=== PATIENT | female | born 1935 | race Caucasian/White ===

== ENCOUNTER 2020-11-16 08:04 | Outpatient (REF) | payer MEDICARE, SELFPAY ==
[2020-11-16 12:17] LABS: Alanine Aminotransferase 13 U/L (0-31); Albumin Level 4.1 g/dL (3.5-5.0); Alkaline Phosphatase 67 U/L (39-117); Anion Gap 14 (12-20); Aspartate Amino Transferase 17 U/L (5-31); Bilirubin Total 0.4 mg/dL (0.0-1.0); Blood Urea Nitrogen 20 mg/dL (9-16); Calcium 9.1 mg/dL (8.4-10.2); Carbon Dioxide 27 mmol/L (22-29); Chloride 105 mmol/L (96-108); Estimated Glomerular Filt Rate > 60; Glucose Random 92 mg/dL (60-115); Potassium 4.4 mmol/L (3.3-5.1); Sodium 142 mmol/L (135-145)
[2020-11-22 12:11] LABS: Vitamin D 25-OH, D2 <4 ng/mL; Vitamin D 25-OH, D3 18 ng/mL; Vitamin D 25-OH, Total 18 ng/mL (30-100)
== END 2020-11-16 08:05 | disposition home or self-care (01) ==
LOC: HO.HMGCLDS 08:04
PROVIDERS: PCP Internal Medicine; Visit Provider Internal Medicine
DX: E78.9 Disorder of lipoprotein metabolism, unspecified (principal); I10 Essential (primary) hypertension; K59.01 Slow transit constipation; M81.0 Age-related 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 fracture
CPT/HCPCS: 36415; 80053; 82306

== ENCOUNTER 2020-11-29 08:22 | Outpatient (REF) | payer MEDICARE, SELFPAY ==
--- NOTE | ~2020-11-29 | US_ITS ---
EXAMINATION: US ABDOMEN COMPLETE CLINICAL INFORMATION: Unspecified abdominal pain. COMPARISON: None TECHNIQUE: Real-time imaging of the abdominal viscera. FINDINGS: PANCREAS: Normal. ABDOMINAL AORTA: The proximal, mid, and distal segments are normal in caliber. INFERIOR VENA CAVA: Visualized portions are normal. LIVER: The liver is normal in size. The liver contour is normal. There is diffuse increased liver echogenicity. There is an anechoic lobulated cyst in the right hepatic lobe measuring 3.6 x 2.1 x 3.7 cm. There is no intrahepatic biliary duct dilatation seen. GALLBLADDER: The gallbladder is physiologically distended. Multiple mobile gallstones are present. No evidence of gallbladder wall thickening or pericholecystic fluid. COMMON BILE DUCT: Normal in caliber measuring 0.8 cm in diameter. RIGHT KIDNEY: There is an echogenic nonobstructive calculi upper pole measuring 0.2 x 0.3 x 0.3 cm. No hydronephrosis or focal parenchymal lesions. The kidney measures 10.5 cm in maximum dimension and is mildly lobulated. LEFT KIDNEY: The left kidney is mildly lobulated. No hydronephrosis or focal parenchymal lesions. The kidney measures 10.4 cm in maximum dimension. There are multiple anechoic cysts. The largest midpole cyst measures 0.9 x 1.0 x 0.9 cm and upper pole cyst measures 0.5 x 0.5 x 0.4 cm. SPLEEN: Normal. The spleen measures 9.1 cm in maximum dimension. FREE FLUID: None. US/US abdomen complete IMPRESSION: Lobulated bilateral kidneys with bilateral renal cysts. No echogenic calculi or hydronephrosis seen. Small right hepatic cyst. Multiple echogenic gallstones without wall thickening or tenderness.
== END 2020-11-29 08:23 | disposition home or self-care (01) ==
LOC: HO.HMGCX 08:22
PROVIDERS: Visit Provider Internal Medicine
DX: R10.9 Unspecified abdominal pain (principal)
CPT/HCPCS: 76700

== ENCOUNTER 2021-02-12 08:00 | Outpatient (RCR) | payer OTHER, SELFPAY ==
[2021-01-31 11:02] VITALS: BP 135/96
--- NOTE | 2021-03-14 09:41 | MHC.PT.DC ---
[facility] [place] [facility] [place] [facility] [place] [facility] [address] Matheus Warner [address] [phone] F: [phone] F: [phone] F: [phone] F: [phone] Physical Therapy Discharge Report Diagnosis: positional vertigo, vestibular therapy for otolith repositioning Date of Surgery: Date of Evaluation: 01/31/21 Date of Discharge: 03/14/21 Treatments to Date: 4 Cancellations to Date: 0 No Shows to Date: 0 Discharge Status: Discharge Summary: Patient reporting without any more symptoms. Has an HEP and felt good at the last tx session. Kept chart open for 30 days prior to formal DC, patient was educated. DC to HEP at this time. Electronically signed by: Laine Escobar PT Please sign and return to therapist. Thank you for your referral.
== END 2021-03-14 09:41 | disposition home or self-care (01) ==
LOC: HO.PTCHIC 08:00
PROVIDERS: PCP Internal Medicine; Visit Provider Psychiatry & Neurology Neurology
DX: H81.10 Benign paroxysmal vertigo, unspecified ear (principal)
CPT/HCPCS: 95992; 97110; 97112; 97162; 97530

== ENCOUNTER 2021-04-23 09:49 | Outpatient (REF) | payer OTHER, MEDICAID, SELFPAY ==
[2021-04-23 11:34] LABS: MANUAL DIFF FLAG NO
[2021-04-23 11:45] LABS: Basophils Percent Auto 0.3 % (0-2); Eosinophils Absolute Auto 0.1 X10*3/uL (0.0-0.4); Eosinophils Percent Auto 1.2 % (0-4); Hematocrit 47.4 % (37-47); Hemoglobin 14.6 g/dl (12.0-16.0); Imm Gran Abs Auto 0.01 X10*3/uL (0.00-0.03); Imm Gran Pct Auto 0.2 % (0.0-0.4); Lymphocytes Absolute Auto 2.4 X10*3/uL (1.2-4.9); Mean Corpuscular HGB Conc 30.8 g/dl (31.0-35.0); Mean Corpuscular Hemoglobin 25.6 pg (27.0-33.0); Mean Corpuscular Volume 83.2 fL (80-98); Mean Platelet Volume 11.2 fL (9.4-12.3); Monocytes Absolute Auto 0.4 X10*3/uL (0.1-1.2); Monocytes Percent Auto 6.3 % (2-11); Neutrophils Absolute Auto 3.6 X10*3/uL (2.0-8.3); Platelet Count 273 X10*3/uL (160-400); Red Cell Distribution Width 14.4 % (11.0-16.0); White Blood Count 6.5 X10*3/uL (4.8-10.8)
[2021-04-23 12:37] LABS: Alanine Aminotransferase 10 U/L (0-31); Albumin Level 4.2 g/dL (3.5-5.0); Alkaline Phosphatase 66 U/L (39-117); Anion Gap 14 (12-20); Aspartate Amino Transferase 16 U/L (5-31); Bilirubin Total 0.5 mg/dL (0.0-1.0); Blood Urea Nitrogen 16 mg/dL (9-16); Calcium 9.8 mg/dL (8.4-10.2); Carbon Dioxide 28 mmol/L (22-29); Chloride 103 mmol/L (96-108); Estimated Glomerular Filt Rate > 60; Glucose Random 97 mg/dL (60-115); Sodium 141 mmol/L (135-145); Total Protein 7.1 g/dL (6.5-8.0)
[2021-04-24 17:25] LABS: LDL Cholesterol Direct 117 mg/dL (<100)
[2021-04-28 16:51] LABS: Vitamin D 25-OH, D2 <4 ng/mL; Vitamin D 25-OH, D3 43 ng/mL; Vitamin D 25-OH, Total 43 ng/mL (30-100)
== END 2021-04-23 09:50 | disposition home or self-care (01) ==
LOC: HO.HMGCLDS 09:49
PROVIDERS: PCP Internal Medicine; Visit Provider Internal Medicine
DX: E78.9 Disorder of lipoprotein metabolism, unspecified (principal); E55.9 Vitamin D deficiency, unspecified; I10 Essential (primary) hypertension
CPT/HCPCS: 36415; 80053; 82306; 83721; 85025

== ENCOUNTER 2021-10-22 09:40 | Outpatient (REF) | payer OTHER, SELFPAY ==
[2021-10-22 11:56] LABS: Alanine Aminotransferase 8 U/L (0-31); Albumin Level 4.1 g/dL (3.5-5.0); Alkaline Phosphatase 71 U/L (39-117); Anion Gap 13 (12-20); Aspartate Amino Transferase 16 U/L (5-31); Bilirubin Total 0.5 mg/dL (0.0-1.0); Blood Urea Nitrogen 17 mg/dL (9-16); Calcium 9.9 mg/dL (8.4-10.2); Carbon Dioxide 26 mmol/L (22-29); Chloride 105 mmol/L (96-108); Estimated Glomerular Filt Rate > 60; Glucose Random 96 mg/dL (60-115); Potassium 4.3 mmol/L (3.3-5.1); Sodium 140 mmol/L (135-145); Total Protein 7.2 g/dL (6.5-8.0)
== END 2021-10-22 09:41 | disposition home or self-care (01) ==
LOC: HO.HMGCLDS 09:40
PROVIDERS: PCP Internal Medicine; Visit Provider Internal Medicine
DX: E78.9 Disorder of lipoprotein metabolism, unspecified (principal); I10 Essential (primary) hypertension; R42 Dizziness and giddiness
CPT/HCPCS: 36415; 80053

== ENCOUNTER 2022-04-25 09:30 | Outpatient (REF) | payer OTHER, SELFPAY ==
[2022-04-25 11:56] LABS: Alanine Aminotransferase 9 U/L (0-31); Albumin Level 4.2 g/dL (3.5-5.0); Alkaline Phosphatase 70 U/L (39-117); Anion Gap 17 (12-20); Aspartate Amino Transferase 16 U/L (5-31); Bilirubin Total 0.6 mg/dL (0.0-1.0); Blood Urea Nitrogen 18 mg/dL (9-16); Carbon Dioxide 27 mmol/L (22-29); Chloride 101 mmol/L (96-108); Estimated Glomerular Filt Rate > 60; Glucose Random 92 mg/dL (60-115); Sodium 141 mmol/L (135-145); Total Protein 7.7 g/dL (6.5-8.0)
== END 2022-04-25 09:31 | disposition home or self-care (01) ==
LOC: HO.HMGCLDS 09:30
PROVIDERS: PCP Internal Medicine; Visit Provider Internal Medicine
DX: E78.9 Disorder of lipoprotein metabolism, unspecified (principal); I10 Essential (primary) hypertension
CPT/HCPCS: 36415; 80053

== ENCOUNTER 2023-05-22 09:17 | Outpatient (AMB) | payer OTHER, SELFPAY ==
--- NOTE | 2023-05-22 09:18 | MHC.PC.OV ---
Vital Signs 05/22/23 09:24 Height 5 ft 1 in Weight 144 lb 2 oz BMI 27.2 BP 136/70 Blood Pressure Location Rt brachial Position Sitting Pulse 64 Pulse Source Pulse Oximeter Pulse Oximetry (%) 99 Oxygen Delivery Method Room Air Intake Visit Reasons: Annual PE Allergies No Known Allergies Allergy (Verified 05/22/23 09:26) Medication List - Last Reconciled 05/22/23 by Abigail Ledesma MD cholecalciferol (vitamin D3) 50 mcg PO DAILY 90 days hydrochlorothiazide 25 mg PO DAILY meclizine 25 mg PO DAILY PRN 30 days polyethylene glycol 3350 (Purelax) one cap full in glass of water PO daily PRN; simvastatin 20 mg PO DAILY 90 days Tobacco use date assessed: 05/22/23 Fall risk assessment: No Falls in past year Last assessed Fall Risk: 05/22/23 Dental Screening Dental Screen Date: 05/22/23 Did you have a dental visit in the last 12 months?: No Did you have a dental problem in the last 6 months where you did not have access to dental care?: No Was dental information given to patient?: Patient declined HPI Annual PE HPI Details Patient is 87-year-old female who came in today for her 4 month follow-up appointment Still having issues with her right eye, patient is under care of Ophthalmology, Dr. Levine, patient says that it hurts and continue to tear I have told her to wear eye patch and see if that helps with the discomfort, she has lost sight in that eye Complaining of difficulty hearing on examination patient have excessive cerumen buildup bilateral which seems to be soft Ears were irrigated today with good result. Hypertension: Stable with hydrochlorothiazide 25 mg, patient is tolerating medication. Blood pressure is stable Lipid disorder: Continue simvastatin 20 mg and diet control, patient is due for labs. Chronic vertigo stable with meclizine 25 mg as needed, patient has been evaluated by Neurology Dr. Zendejas. Multiple kidney cysts were evaluated by Nephrology no workup was recommended. Chronic constipation: Continue MiraLax as needed and hydration. Along with high-fiber diet. Osteoporosis: Patient is on vitamin-D supplement Labs to be done today. Follow-up 4 months [facility] Family History Father Cancer Mother No problems noted. Social History Housing: Apartment Alcohol intake: never Patient Tobacco Use Status: Never used Tobacco e-Cigarette/Vaping Use: Never Used Current occupational status: retired Cognitive needs: No Hearing needs: No Vision needs: No Questionnaire PHQ-9 Over the last 2 weeks, how often have you been bothered by any of the following problems? 1. Little interest or pleasure in doing things: not at all 2. Feeling down, depressed, or hopeless: not at all 3. Trouble falling or staying asleep, or sleeping too much: not at all 4. Feeling tired or having little energy: not at all 5. Poor appetite or overeating: not at all 6. Feeling bad about yourself - or that you are a failure or have let yourself or your family down: not at all 7. Trouble concentrating on things, such as reading the newspaper or watching television: not at all 8. Moving or speaking so slowly that other people could have noticed. Or the opposite - being so fidgety or restless that you have been moving around a lot more than usual: not at all 9. Thoughts that you would be better off or of hurting yourself in some way: not at all Total score: 0 Depression Screening Interpretation: Negative Depression Screening Done: Yes 23332 - PHQ-9 Billing: Yes Source: Developed by Drs. Dipak Dumont, Denisha Gomez, Aaron Kemp and colleagues, with an educational juan from [employer]. Thrive Questionnaire Date Thrive assessed: 05/22/23 I am a: Patient What is your living situation today?: I have a steady place to live Within the past 12 months, did the food you bought not last and you didn't have the money to get more?: Never true Within the past 12 months, did you worry whether your food would run out before you got money to buy more?: Never true Do you have trouble paying for medicines?: No Do you have trouble getting transportation to medical appointments?: No Do you have trouble paying your heating and electricity bill?: No Do you have trouble taking care of your child, family member or friend?: No Do you have trouble with day-to-day activities such as bathing, preparing meals, shopping, managing finances, etc.?: No Are you currently unemployed and looking for a job?: No Are you interested in more education?: No JONATHON-7 AMB Questionnaire JONATHON-7 Date JONATHON - 7 assessed: 05/22/23 Feeling nervous, anxious, or on edge: 0 = Not at all Not being able to stop or control worryin = Not at all Worrying too much about different things: 0 = Not at all Trouble relaxin = Not at all Being so restless that it is hard to sit still: 0 = Not at all Becoming easily annoyed or irritable: 0 = Not at all Feeling afraid as if something awful might happen: 0 = Not at all Total JONATHON-7 score (0-4 normal; 5-9 mild; 10-14 moderate; 15-21 severe): 0 Source: Developed by Drs. Dipak Dumont, Denisha Gomez, Aaron Kemp and colleagues, with an educational juan from [employer]. JONATHON-7 Assessment Billing JONATHON-7 Assessment Tool: JONATHON-7 Assessment 82502 Review of Systems Const Denies chills, Denies excessive sweating, Denies fever(s) and Denies poor appetite ENT Denies sore throat, Denies throat swelling and Denies tongue swelling Card Denies chest pain at rest, Denies radiating jaw, neck or arm pain and Denies paroxysmal nocturnal dyspnea Resp Denies cough and Denies hemoptysis GI Denies melena, Denies change in stool character, Denies coffee ground emesis and Denies vomiting Musc Reports as per HPI Skin/Breast Reports as per HPI Neuro Denies tremor(s) Endo Denies cold intolerance and Denies excessive sweating Aller/Immun Denies throat swelling and Denies tongue swelling Physical exam (Primary Care) Vital Signs: Last Vital Signs Pulse 64 05/22/23 09:24 BP 136/70 05/22/23 09:24 Pulse Ox 99 05/22/23 09:24 Oxygen Delivery Method Room Air 05/22/23 09:24 BMI result Body Mass Index 27.2 Tobacco/Smoking Status: Tobacco use Status Tobacco use date assessed 05/22/23 05/22/23 09:28 Patient Tobacco Use Status Never used Tobacco 05/22/23 09:18 e-Cigarette/Vaping Use Never Used 05/22/23 09:28 PHQ-9: PHQ-9 Score PHQ-9: Total score 0 05/22/23 09:52 Depression Screening Interpretation: Negative Thrive Assessment: Date of Thrive Assessment Date Thrive assessed 05/22/23 05/22/23 09:52 Const General: cooperative, comfortable and no acute distress Orientation/consciousness: patient oriented x3 HENMT Other: Both ears filled with soft cerumen, post irrigation ears left ear is clean, right ear has some cerumen left but patient is dizzy so we stopped, she is all right generally was able to get up and leave Head: Yes normocephalic and Yes atraumatic Ears: hearing grossly normal bilaterally Neck Neck: Yes no lymphadenopathy and No tracheal deviation Resp Effort & Inspection: normal respiratory effort, able to speak in complete sentences and no audible wheezes Cardio Rhythm: regular rhythm Heart sounds: S1 normal heart sound present and S2 normal heart sound present Skin General skin exam: turgor normal Neuro General: patient oriented x3 and moves all extremities Gait exam (Neuro): Normal gait present Extrem Right lower extremity: no edema Left lower extremity: no edema Psych Affect: normal affect Attitude: cooperative Office Procedures Cerumen Removal From which ear canal was the cerumen removed: bilateral Removal: irrigation Notes: patient tolerated procedure well, no complications and ear canal clear [id number] Irrigation/Lavage Assessment and Plan Assessment & Plan (1) Hypertension, essential: Code(s): I10 - Essential (primary) hypertension (2) Lipid disorder: Code(s): E78.9 - Disorder of lipoprotein metabolism, unspecified (3) Constipation by delayed colonic transit: Code(s): K59.01 - Slow transit constipation (4) Vitamin D deficiency: Code(s): E55.9 - Vitamin D deficiency, unspecified (5) Osteoporosis: Code(s): M81.0 - Age-related 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 fracture Qualifiers: Osteoporosis type: age-related Presence of current pathological fracture: without current pathological fracture Qualified Code(s): M81.0 - Age-related 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 fracture (6) Vertigo: Code(s): R42 - Dizziness and giddiness (7) Excessive cerumen in both ear canals: Code(s): H61.23 - Impacted cerumen, bilateral (8) Blind right eye: Code(s): H54.40 - Blindness, one eye, unspecified eye Qualifiers: Left eye visual impairment category: left - normal vision Qualified Code(s): H54.40 - Blindness, one eye, unspecified eye Plan Patient is 87-year-old female who came in today for her 4 month follow-up appointment Still having issues with her right eye, patient is under care of Ophthalmology, Dr. Levine, patient says that it hurts and continue to tear I have told her to wear eye patch and see if that helps with the discomfort, she has lost sight in that eye Complaining of difficulty hearing on examination patient have excessive cerumen buildup bilateral which seems to be soft Ears were irrigated today with good result. Hypertension: Stable with hydrochlorothiazide 25 mg, patient is tolerating medication. Blood pressure is stable Lipid disorder: Continue simvastatin 20 mg and diet control, patient is due for labs. Chronic vertigo stable with meclizine 25 mg as needed, patient has been evaluated by Neurology Dr. Zendejas. Multiple kidney cysts were evaluated by Nephrology no workup was recommended. Chronic constipation: Continue MiraLax as needed and hydration. Along with high-fiber diet. Osteoporosis: Patient is on vitamin-D supplement Labs to be done today. Follow-up 4 months Orders: Orders Complete Blood Count Auto Diff Today E55.9 - Vitamin D deficiency, unspecified, E78.9 - Disorder of lipoprotein metabolism, unspecified, I10 - Essential (primary) hypertension, K59.01 - Slow transit constipation Comprehensive Met. Panel Today E55.9 - Vitamin D deficiency, unspecified, E78.9 - Disorder of lipoprotein metabolism, unspecified, I10 - Essential (primary) hypertension, K59.01 - Slow transit constipation LDL Cholesterol Direct Today E55.9 - Vitamin D deficiency, unspecified, E78.9 - Disorder of lipoprotein metabolism, unspecified, I10 - Essential (primary) hypertension, K59.01 - Slow transit constipation Vitamin D 25-OH (D2 and D3) Today E55.9 - Vitamin D deficiency, unspecified, E78.9 - Disorder of lipoprotein metabolism, unspecified, I10 - Essential (primary) hypertension, K59.01 - Slow transit constipation Medications: Refilled cholecalciferol (vitamin D3) 50 mcg PO DAILY 90 caps 3RF 90 days E55.9 - Vitamin D deficiency, unspecified Coding Level of Care Code Est Pt Level 4 (29187) Diagnoses Hypertension, essential I10 Lipid disorder E78.9 Constipation by delayed colonic transit K59.01 Vitamin D deficiency E55.9 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 Osteoporosis type: age-related Presence of current pathological fracture: without current pathological fracture Vertigo R42 Excessive cerumen in both ear canals H61.23 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 H54.40 Left eye visual impairment category: left - normal vision CPT Codes Office Procedure - CPT: 48475-Nxe Irrigation/Lavage ([id number]) Additional Codes JONATHON-7 Assessment Billing - JONATHON-7 Assessment Tool: JONATHON-7 Assessment [id number] ([id number])
[2023-05-22 09:24] VITALS: BP 136/70; PULSE 64; O2SAT 99; BMI 27.2
== END 2023-05-22 09:55 | disposition home or self-care (01) ==
PROVIDERS: PCP Internal Medicine; Visit Provider Internal Medicine
DX: I10 Essential (primary) hypertension (principal); E78.9 Disorder of lipoprotein metabolism, unspecified; H61.23 Impacted cerumen, bilateral; K59.01 Slow transit constipation; E55.9 Vitamin D deficiency, unspecified; M81.0 Age-related 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 fracture; R42 Dizziness and giddiness; H54.41 Blindness, right eye, normal vision left eye
CPT/HCPCS: 69209; 99214

== ENCOUNTER 2023-05-22 09:56 | Outpatient (REF) | payer OTHER, SELFPAY ==
[2023-05-22 13:14] LABS: MANUAL DIFF FLAG NO
[2023-05-22 13:31] LABS: Basophils Percent Auto 0.4 % (0-2); Eosinophils Absolute Auto 0.2 X10*3/uL (0.0-0.4); Eosinophils Percent Auto 2.4 % (0-4); Hematocrit 45.8 % (37.0-47.0); Hemoglobin 14.1 g/dl (12.0-16.0); Imm Gran Abs Auto 0.02 X10*3/uL (0.00-0.03); Imm Gran Pct Auto 0.3 % (0.0-0.4); Lymphocytes Absolute Auto 2.3 X10*3/uL (1.2-4.9); Lymphocytes Percent Auto 32.6 % (20-40); Mean Corpuscular HGB Conc 30.8 g/dl (31.0-35.0); Mean Corpuscular Volume 84.5 fL (80.0-98.0); Mean Platelet Volume 11.2 fL (9.4-12.3); Monocytes Absolute Auto 0.5 X10*3/uL (0.1-1.2); Monocytes Percent Auto 7.3 % (2-11); Neutrophils Absolute Auto 4.1 x10*3/uL (2.0-8.3); Platelet Count 276 X10*3/uL (160-400); Red Blood Count 5.42 X10*6/uL (4.20-5.50); Red Cell Distribution Width 14.2 % (11.0-16.0); White Blood Count 7.1 X10*3/uL (4.8-10.8)
[2023-05-22 14:38] LABS: Alanine Aminotransferase 7 U/L (0-31); Alkaline Phosphatase 68 U/L (39-117); Anion Gap 12 (12-20); Aspartate Amino Transferase 16 U/L (5-31); Bilirubin Total 0.5 mg/dL (0.0-1.0); Blood Urea Nitrogen 17 mg/dL (9-16); Calcium 9.8 mg/dL (8.4-10.2); Carbon Dioxide 28 mmol/L (22-29); Chloride 106 mmol/L (96-108); Estimated Glomerular Filt Rate > 60; Glucose Random 87 mg/dL (60-115); Potassium 4.4 mmol/L (3.3-5.1); Sodium 142 mmol/L (135-145); Total Protein 7.2 g/dL (6.5-8.0)
== END 2023-05-22 09:57 | disposition home or self-care (01) ==
LOC: HO.HMGCLDS 09:56
PROVIDERS: PCP Internal Medicine; Visit Provider Internal Medicine
DX: I10 Essential (primary) hypertension (principal); E78.9 Disorder of lipoprotein metabolism, unspecified; K59.01 Slow transit constipation; E55.9 Vitamin D deficiency, unspecified
CPT/HCPCS: 36415; 80053; 82306; 83721; 85025

== ENCOUNTER 2023-05-27 13:55 | Outpatient (AMB) | payer OTHER, SELFPAY ==
[2023-05-27 13:59] VITALS: BP 132/80; PULSE 87; TEMP 36.6; O2SAT 97; BMI 26.8
--- NOTE | 2023-05-27 13:59 | AM.OFFWIN_ITS ---
Intake Vital Signs 05/27/23 13:59 Height 5 ft 1 in Weight 142 lb BMI 26.8 BP 132/80 Blood Pressure Location Lt brachial Position Sitting Pulse 87 Pulse Source Pulse Oximeter Temp 97.9 F Temp Source Temporal Artery Scan Pulse Oximetry (%) 97 Oxygen Delivery Method Room Air Intake Visit Reasons: EP, abdominal pain, constipation Intake Note: pt is here for c/o abd pain with constipation Patient Tobacco Use Status: Never used Tobacco Allergies No Known Allergies Allergy (Verified 05/27/23 13:59) Do you need a note to return to daycare/school/sports/work: Yes HPI HPI Comments History of Present Illness Details This is an 87-year-old female with past medical history of hypertension, hyperlipidemia and 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 Patient states that she has had constipation before. Her only abdominal surgical history includes a hysterectomy. Patient has been using MiraLax intermittently without relief of her symptoms. Patient states that she did have a bowel movement approximately 3:00 a.m. today however it was only watery without any substance. She is able to pass flatus. Patient denies having any fevers, chills, nausea, vomiting, dark or bloody stools, dysuria or urinary frequency. [facility] Family History Father Cancer Mother No problems noted. Social History Housing: Apartment Alcohol intake: never Patient Tobacco Use Status: Never used Tobacco e-Cigarette/Vaping Use: Never Used Current occupational status: retired Cognitive needs: No Hearing needs: No Vision needs: No Review of Systems Const All systems reviewed & are unremarkable except as noted in HPI and below Card Reports no additional complaints Resp Reports no additional complaints GI Denies melena, Denies bloating, Reports change in bowel habits, Reports change in stool character, Reports constipation, Reports GI cramping (low abdomen) and Denies excessive flatus Skin/Breast Reports system reviewed and no additional complaints, except as documented Physical Exam Vital Signs: Last Vital Signs Temp 97.9 F 05/27/23 13:59 Pulse 87 05/27/23 13:59 BP 132/80 05/27/23 13:59 Pulse Ox 97 05/27/23 13:59 Oxygen Delivery Method Room Air 05/27/23 13:59 BMI result Body Mass Index 26.8 Const General: cooperative, healthy appearing, comfortable and no acute distress Nutritional Appearance: average body habitus Orientation/consciousness: patient oriented x3 Limitations: no limitations Cardio Rate: regular rate GI Inspection: Yes normal to inspection, No obesity and No visible pulsation Palpation (GI): Soft to palpation and Tenderness to palpation present (GI) in the LLQ (no guarding, no rebound tenderness) Percussion: Yes normal to percussion Auscultation: normal bowel sounds, no high pitched sounds and no hyperactive bowel sounds Rectal Exam - Female: deferred Skin General skin exam: no rashes or lesions noted Neuro General: patient oriented x3 Gait exam (Neuro): Normal gait present Psych Appearance: grossly normal Mental Status: mental status grossly normal Insight: Good insight present (Psych) Judgement: Good judgement present (Psych) Assessment & Plan Assessment & Plan (1) Constipation: Code(s): K59.00 - Constipation, unspecified Plan: Patient will discontinue her MiraLax and start Metamucil once daily, eat high- fiber cereal and prunes and increase her water intake and ambulation daily. Patient will follow-up with her primary care provider within 7 days if her symptoms persist. Coding Level of Care Code Est Pt Level 3 (88063) Diagnoses Constipation K59.00 Time Spent (min) 20
== END 2023-05-27 14:56 | disposition home or self-care (01) ==
PROVIDERS: PCP Internal Medicine; Visit Provider Physician Assistant
DX: K59.00 Constipation, unspecified (principal)
CPT/HCPCS: 99213

== ENCOUNTER 2024-01-20 09:43 | Outpatient (AMB) | payer OTHER, SELFPAY ==
--- NOTE | 2024-01-20 09:41 | MHC.PC.OV ---
Intake Visit Reasons: 8 Month follow up Allergies No Known Allergies Allergy (Verified 01/20/24 09:41) Medication List - Last Reconciled 01/20/24 by Abigail Ledesma MD brimonidine-timolol 0.2-0.5 % drps ophthalmic (eye) cholecalciferol (vitamin D3) 50 mcg PO DAILY 90 days hydrochlorothiazide 25 mg PO DAILY meclizine 25 mg PO DAILY PRN 30 days polyethylene glycol 3350 (Purelax) one cap full in glass of water PO daily PRN; prednisolone acetate 1% drps ophthalmic (eye) simvastatin 20 mg PO DAILY 90 days Tobacco use date assessed: 01/20/24 Fall risk assessment: No Falls in past year Last assessed Fall Risk: 01/20/24 Dental Screening Dental Screen Date: 01/20/24 Did you have a dental visit in the last 12 months?: No Was dental information given to patient?: No HPI 8 Month follow up HPI Details Patient is 88-year-old female this is telemed visit 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 Lipid disorder: Continue simvastatin 20 mg and diet control, patient is due for labs. Chronic vertigo stable with meclizine 25 mg as needed, patient has been evaluated by Neurology Dr. Zendejas. Multiple kidney cysts were evaluated by Nephrology no workup was recommended. Chronic constipation: Continue MiraLax as needed and hydration. Along with high-fiber diet. Osteoporosis: Patient is on vitamin-D supplement last time she had labs were Oct of last year, reminded patient that we need updated labs PFSH Family History Father Cancer Mother No problems noted. Social History Housing: Apartment Alcohol intake: never Patient Tobacco Use Status: Never used Tobacco e-Cigarette/Vaping Use: Never Used Current occupational status: retired Cognitive needs: No Hearing needs: No Vision needs: No Questionnaire Thrive Questionnaire Date Thrive assessed: 05/22/23 AUDIT C Alcohol Use Questionnaire (AUDIT-C) 1. How often do you have a drink containing alcohol?: Never 3. How often do you have six or more drinks on one occasion?: Never Total Score: 0 Score Reviewed/Action Taken: Yes JONATHON-7 AMB Questionnaire JONATHON-7 Date JONATHON - 7 assessed: 05/22/23 Source: Developed by Drs. Dipak Dumont, Denisha Gomez, Aaron Kemp and colleagues, with an educational juan from [employer]. Review of Systems Const Denies chills and Denies fever(s) ENT Denies epistaxis and Denies nasal discharge Card Denies chest pain Resp Denies chest congestion, Denies cough and Denies hemoptysis GI Denies diarrhea and Denies nausea Skin/Breast Denies rash Neuro Reports no additional complaints Psych Reports no additional complaints Endo Reports no additional complaints Physical exam (Primary Care) Tobacco/Smoking Status: Tobacco use Status Tobacco use date assessed 01/20/24 01/20/24 09:42 Patient Tobacco Use Status Never used Tobacco 01/20/24 09:42 e-Cigarette/Vaping Use Never Used 01/20/24 09:42 Thrive Assessment: Date of Thrive Assessment Date Thrive assessed 05/22/23 01/20/24 09:42 Const General: cooperative, comfortable and no acute distress Orientation/consciousness: patient oriented x3 HENMT Head: Yes normocephalic Eyes General: appearance normal, both eyes and all related structures Neck Neck: Yes supple Resp Effort & Inspection: normal respiratory effort, no cough and no stridor Cardio Rhythm: regular rhythm Heart sounds: S1 normal heart sound present and S2 normal heart sound present Skin General skin exam: turgor normal Neuro General: patient oriented x3, tone normal and moves all extremities Extrem Right lower extremity: no edema Left lower extremity: no edema Telehealth Telehealth Telehealth Platform: [facility] Location of provider rendering services: practice address Location of patient: address on file Patient Identification confirmed using: Name, : Yes Telehealth method: voice only Patient verbally consented to treatment: Yes Patient verbally consented to billing insurance company: Yes Patient informed of any privacy concerns related to visit: Yes Minutes spent on Phone/Video with Pt.: 17 Assessment and Plan Assessment & Plan (1) Lipid disorder: Code(s): E78.9 - Disorder of lipoprotein metabolism, unspecified (2) Hypertension, essential: Code(s): I10 - Essential (primary) hypertension (3) Osteoporosis: Code(s): M81.0 - Age-related 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 fracture Qualifiers: Osteoporosis type: age-related Presence of current pathological fracture: without current pathological fracture Qualified Code(s): M81.0 - Age-related 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 fracture (4) Vertigo: Code(s): R42 - Dizziness and giddiness (5) Vitamin D deficiency: Code(s): E55.9 - Vitamin D deficiency, unspecified (6) Constipation by delayed colonic transit: Code(s): K59.01 - Slow transit constipation Plan Patient is 88-year-old female this is telemed visit 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 Lipid disorder: Continue simvastatin 20 mg and diet control, patient is due for labs. Chronic vertigo stable with meclizine 25 mg as needed, patient has been evaluated by Neurology Dr. Zendejas. Multiple kidney cysts were evaluated by Nephrology no workup was recommended. Chronic constipation: Continue MiraLax as needed and hydration. Along with high-fiber diet. Osteoporosis: Patient is on vitamin-D supplement last time she had labs were May of last year, reminded patient that we need updated labs Orders: Orders Comprehensive Met. 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 fracture, R42 - Dizziness and giddiness LDL Cholesterol Direct Today E55.9 - Vitamin D deficiency, unspecified, E78.9 - Disorder of lipoprotein metabolism, unspecified, I10 - Essential (primary) hypertension, K59.01 - Slow transit constipation, M81.0 - Age-related 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 fracture, R42 - Dizziness and giddiness Complete Blood Count Auto Diff Today E55.9 - Vitamin D deficiency, unspecified, E78.9 - Disorder of lipoprotein metabolism, unspecified, I10 - Essential (primary) hypertension, K59.01 - Slow transit constipation, M81.0 - Age-related 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 fracture, R42 - Dizziness and giddiness Vitamin B12 Today E55.9 - Vitamin D deficiency, unspecified, E78.9 - Disorder of lipoprotein metabolism, unspecified, I10 - Essential (primary) hypertension, K59.01 - Slow transit constipation, M81.0 - Age-related 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 fracture, R42 - Dizziness and giddiness Vitamin D 25-OH (D2 and D3) Today E55.9 - Vitamin D deficiency, unspecified, E78.9 - Disorder of lipoprotein metabolism, unspecified, I10 - Essential (primary) hypertension, K59.01 - Slow transit constipation, M81.0 - Age-related 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 fracture, R42 - Dizziness and giddiness TSH reflex Free T4 Today E55.9 - Vitamin D deficiency, unspecified, E78.9 - Disorder of lipoprotein metabolism, unspecified, I10 - Essential (primary) hypertension, K59.01 - Slow transit constipation, M81.0 - Age-related 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 fracture, R42 - Dizziness and giddiness Coding Level of Care Code Est Pt Level 3 (74635) Diagnoses Lipid disorder E78.9 Hypertension, essential I10 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 Osteoporosis type: age-related Presence of current pathological fracture: without current pathological fracture Vertigo R42 Vitamin D deficiency E55.9 Constipation by delayed colonic transit K59.01
== END 2024-01-20 12:15 | disposition home or self-care (01) ==
LOC: HO.HMGC 09:43
PROVIDERS: PCP Internal Medicine; Visit Provider Internal Medicine
DX: E78.9 Disorder of lipoprotein metabolism, unspecified (principal); I10 Essential (primary) hypertension; M81.0 Age-related 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 fracture; R42 Dizziness and giddiness; E55.9 Vitamin D deficiency, unspecified; K59.01 Slow transit constipation
CPT/HCPCS: 99213

== ENCOUNTER 2024-01-25 08:38 | Outpatient (REF) | payer OTHER, SELFPAY ==
[2024-01-25 10:19] LABS: MANUAL DIFF FLAG NO
[2024-01-25 10:31] LABS: Basophils Percent Auto 0.4 % (0-2); Eosinophils Absolute Auto 0.1 X10*3/uL (0.0-0.4); Eosinophils Percent Auto 1.9 % (0-4); Hematocrit 45.4 % (37.0-47.0); Hemoglobin 13.9 g/dl (12.0-16.0); Imm Gran Abs Auto 0.02 X10*3/uL (0.00-0.03); Imm Gran Pct Auto 0.3 % (0.0-0.4); Lymphocytes Absolute Auto 2.5 X10*3/uL (1.2-4.9); Lymphocytes Percent Auto 33.9 % (20-40); Mean Corpuscular HGB Conc 30.6 g/dl (31.0-35.0); Mean Corpuscular Hemoglobin 25.9 pg (27.0-33.0); Mean Corpuscular Volume 84.5 fL (80.0-98.0); Mean Platelet Volume 11.1 fL (9.4-12.3); Monocytes Absolute Auto 0.5 X10*3/uL (0.1-1.2); Monocytes Percent Auto 7.3 % (2-11); Neutrophils Absolute Auto 4.1 x10*3/uL (2.0-8.3); Neutrophils Percent Auto 56.2 % (45-73); Platelet Count 276 X10*3/uL (160-400); Red Blood Count 5.37 X10*6/uL (4.20-5.50); Red Cell Distribution Width 14.2 % (11.0-16.0); White Blood Count 7.3 X10*3/uL (4.8-10.8)
[2024-01-25 11:00] LABS: Alanine Aminotransferase 10 U/L (0-31); Albumin Level 3.9 g/dL (3.5-5.0); Alkaline Phosphatase 71 U/L (39-117); Anion Gap 14 (12-20); Aspartate Amino Transferase 17 U/L (5-31); Bilirubin Total 0.4 mg/dL (0.0-1.0); Blood Urea Nitrogen 18 mg/dL (9-16); Calcium 9.8 mg/dL (8.4-10.2); Carbon Dioxide 26 mmol/L (22-29); Chloride 108 mmol/L (96-108); Estimated Glomerular Filt Rate > 60; Glucose Random 101 mg/dL (60-115); Potassium 3.7 mmol/L (3.3-5.1); Sodium 144 mmol/L (135-145)
[2024-01-25 11:01] LABS: TSH reflex Free T4 1.74 uIU/mL (0.32-4.0)
[2024-01-25 11:08] LABS: Vitamin B12 530 pg/mL (200-900)
[2024-01-26 16:49] LABS: LDL Cholesterol Direct 132 mg/dL (<100)
[2024-01-28 11:44] LABS: Vitamin D 25-OH, D2 <4 ng/mL; Vitamin D 25-OH, D3 35 ng/mL; Vitamin D 25-OH, Total 35 ng/mL (30-100)
== END 2024-01-25 08:39 | disposition home or self-care (01) ==
LOC: HO.HMGCLDS 08:38
PROVIDERS: PCP Internal Medicine; Visit Provider Internal Medicine
DX: E78.9 Disorder of lipoprotein metabolism, unspecified (principal); I10 Essential (primary) hypertension; M81.0 Age-related 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 fracture; R42 Dizziness and giddiness; E55.9 Vitamin D deficiency, unspecified; K59.01 Slow transit constipation
CPT/HCPCS: 36415; 80053; 82306; 82607; 83721; 84443; 85025

== ENCOUNTER 2024-06-15 09:12 | Outpatient (AMB) | payer OTHER, SELFPAY ==
[2024-06-15 09:14] VITALS: BP 128/80; PULSE 79; O2SAT 95; BMI 29.1
--- NOTE | 2024-06-15 09:14 | A.OFFPC_ITS ---
Vital Signs 06/15/24 09:14 Height 5 ft Weight 149 lb 2 oz BMI 29.1 BP 128/80 Blood Pressure Location Lt brachial Position Sitting Pulse 79 Pulse Source Pulse Oximeter Pulse Oximetry (%) 95 Oxygen Delivery Method Room Air Intake Visit Reasons: Cornea surgery Allergies No Known Allergies Allergy (Verified 06/15/24 09:16) Medication List - Last Reconciled 06/15/24 by Abigail Ledesma MD brimonidine-timolol 0.2-0.5 % drps ophthalmic (eye) cholecalciferol (vitamin D3) 50 mcg PO DAILY 90 days hydrochlorothiazide 25 mg PO DAILY meclizine 25 mg PO DAILY PRN 30 days polyethylene glycol 3350 (Purelax) one cap full in glass of water PO daily PRN; prednisolone acetate 1% drps ophthalmic (eye) simvastatin 20 mg PO DAILY 90 days Tobacco use date assessed: 06/15/24 Fall risk assessment: No Falls in past year Last assessed Fall Risk: 06/15/24 Dental Screening Dental Screen Date: 01/20/24 HPI Cornea surgery HPI Details Patient is 88-year-old female who is struggling with pain in her right eye And has developed opacity of cornea, continues weeping of I Going in for procedure on that I 06/20/2024 by [facility] [place] Procedure will be done under local anesthesia There is no need for EKG or labs Blood pressure is stable vital signs are stable Patient has no signs of infection Medication list reviewed New set of lab order placed to be done before next visit in 4 months Patient is stable for right Sheila flap PFSH Family History Father Cancer Mother No problems noted. Social History Housing: Apartment Alcohol intake: never Patient Tobacco Use Status: Never used Tobacco e-Cigarette/Vaping Use: Never Used Current occupational status: retired Cognitive needs: No Hearing needs: No Vision needs: No Questionnaire PHQ-9 Over the last 2 weeks, how often have you been bothered by any of the following problems? 1. Little interest or pleasure in doing things: not at all 2. Feeling down, depressed, or hopeless: not at all 3. Trouble falling or staying asleep, or sleeping too much: not at all 4. Feeling tired or having little energy: not at all 5. Poor appetite or overeating: not at all 6. Feeling bad about yourself - or that you are a failure or have let yourself or your family down: not at all 7. Trouble concentrating on things, such as reading the newspaper or watching television: not at all 8. Moving or speaking so slowly that other people could have noticed. Or the opposite - being so fidgety or restless that you have been moving around a lot more than usual: not at all 9. Thoughts that you would be better off or of hurting yourself in some way: not at all Total score: 0 Depression Screening Interpretation: Negative Depression Screening Done: Yes 32366 - PHQ-9 Billing: Yes Source: Developed by Drs. Dipak Dumont, Denisha Gomez, Aaron Kemp and colleagues, with an educational juan from [employer]. Thrive Questionnaire Date Thrive assessed: 06/15/24 I am a: Patient What is your living situation today?: I have a steady place to live Within the past 12 months, did the food you bought not last and you didn't have the money to get more?: Never true Within the past 12 months, did you worry whether your food would run out before you got money to buy more?: Never true Do you have trouble paying for medicines?: No Do you have trouble getting transportation to medical appointments?: No Do you have trouble paying your heating and electricity bill?: No Do you have trouble taking care of your child, family member or friend?: No Do you have trouble with day-to-day activities such as bathing, preparing meals, shopping, managing finances, etc.?: No Are you currently unemployed and looking for a job?: No Are you interested in more education?: No Please select the resources that you would like help with: None Currently or been in a relationship where the following occur: No concerns reported THRIVE Score: 0 AUDIT C Alcohol Use Questionnaire (AUDIT-C) 1. How often do you have a drink containing alcohol?: Never 3. How often do you have six or more drinks on one occasion?: Never Total Score: 0 Score Reviewed/Action Taken: Yes JONATHON-7 AMB Questionnaire JONATHON-7 Date JONATHON - 7 assessed: 05/22/23 Feeling nervous, anxious, or on edge: 0 = Not at all Not being able to stop or control worryin = Not at all Worrying too much about different things: 0 = Not at all Trouble relaxin = Not at all Being so restless that it is hard to sit still: 0 = Not at all Becoming easily annoyed or irritable: 0 = Not at all Feeling afraid as if something awful might happen: 0 = Not at all Total JONATHON-7 score (0-4 normal; 5-9 mild; 10-14 moderate; 15-21 severe): 0 Source: Developed by Drs. Dipak Dumont, Denisha Gomez, Aaron Kemp and colleagues, with an educational juan from [employer]. JONATHON-7 Assessment Billing JONATHON-7 Assessment Tool: JONATHON-7 Assessment 69433 Review of Systems Const Denies chills and Denies fever(s) ENT Denies epistaxis and Denies nasal discharge Card Denies chest pain Resp Denies chest congestion, Denies cough and Denies hemoptysis GI Denies diarrhea and Denies nausea Skin/Breast Denies rash Neuro Reports no additional complaints Psych Reports no additional complaints Endo Reports no additional complaints Physical exam (Primary Care) Vital Signs: Last Vital Signs Pulse 79 06/15/24 09:14 BP 128/80 06/15/24 09:14 Pulse Ox 95 06/15/24 09:14 Oxygen Delivery Method Room Air 06/15/24 09:14 BMI result Body Mass Index 29.1 Tobacco/Smoking Status: Tobacco use Status Tobacco use date assessed 06/15/24 06/15/24 09:17 Patient Tobacco Use Status Never used Tobacco 06/15/24 09:17 e-Cigarette/Vaping Use Never Used 06/15/24 09:17 PHQ-9: PHQ-9 Score PHQ-9: Total score 0 06/15/24 09:27 Depression Screening Interpretation: Negative Thrive Assessment: Date of Thrive Assessment Date Thrive assessed 06/15/24 06/15/24 09:17 Currently or been in a relationship where the following occur: No concerns reported Const General: cooperative, comfortable and no acute distress Orientation/consciousness: patient oriented x3 HENMT Head: Yes normocephalic Eyes Other: Right eye with corneal opacity and clear discharge Neck Neck: Yes supple Resp Effort & Inspection: normal respiratory effort, no cough and no stridor Cardio Rhythm: regular rhythm Heart sounds: S1 normal heart sound present and S2 normal heart sound present Skin General skin exam: turgor normal Neuro General: patient oriented x3, tone normal and moves all extremities Extrem Right lower extremity: no edema Left lower extremity: no edema Coding Level of Care Code Est Pt Level 4 (00717) Diagnoses Pre-op evaluation Z01.818 Corneal opacity of right eye H17.9 Pain in right eye H57.11 Discharge of eye, right H57.89 Lipid disorder E78.9 Hypertension, essential I10 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 Osteoporosis type: age-related Presence of current pathological fracture: without current pathological fracture Vitamin D deficiency E55.9 Additional Codes JONATHON-7 Assessment Billing - JONATHON-7 Assessment Tool: JONATHON-7 Assessment [id number] ([id number]) Assessment & Plan Assessment & Plan (1) Pre-op evaluation: Code(s): Z01.818 - Encounter for other preprocedural examination Category: Medical (2) Corneal opacity of right eye: Code(s): H17.9 - Unspecified corneal scar and opacity Category: Medical (3) Pain in right eye: Code(s): H57.11 - Ocular pain, right eye Category: Medical (4) Discharge of eye, right: Code(s): H57.89 - Other specified disorders of eye and adnexa Category: Medical (5) Lipid disorder: Code(s): E78.9 - Disorder of lipoprotein metabolism, unspecified Category: Medical (6) Hypertension, essential: Code(s): I10 - Essential (primary) hypertension Category: Medical (7) Osteoporosis: Code(s): M81.0 - Age-related 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 fracture Category: Medical Qualifiers: Osteoporosis type: age-related Presence of current pathological fracture: without current pathological fracture Qualified Code(s): M81.0 - Age- related 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 fracture (8) Vitamin D deficiency: Code(s): E55.9 - Vitamin D deficiency, unspecified Category: Medical Plan Patient is 88-year-old female who is struggling with pain in her right eye And has developed opacity of cornea, continues weeping of I Going in for procedure on that I 06/20/2024 by [facility] [place] Procedure will be done under local anesthesia There is no need for EKG or labs Blood pressure is stable vital signs are stable Patient has no signs of infection Medication list reviewed New set of lab order placed to be done before next visit in 4 months Patient is stable for right Sheila flap Orders: Orders Complete Blood Count Auto Diff Today E55.9 - Vitamin D deficiency, unspecified, E78.9 - Disorder of lipoprotein metabolism, unspecified, H17.9 - Unspecified corneal scar and opacity, H57.11 - Ocular pain, right eye, H57.89 - Other specified disorders of eye and adnexa, I10 - Essential (primary) hypertension, M81.0 - Age-related 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 fracture, Z01.818 - Encounter for other preprocedural examination Lipid Panel Today E55.9 - Vitamin D deficiency, unspecified, E78.9 - Disorder of lipoprotein metabolism, unspecified, H17.9 - Unspecified corneal scar and opacity, H57.11 - Ocular pain, right eye, H57.89 - Other specified disorders of eye and adnexa, I10 - Essential (primary) hypertension, M81.0 - Age-related 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 fracture, Z01.818 - Encounter for other preprocedural examination Comprehensive [place]. Panel Fast Today E55.9 - Vitamin D deficiency, unspecified, E78.9 - Disorder of lipoprotein metabolism, unspecified, H17.9 - Unspecified corneal scar and opacity, H57.11 - Ocular pain, right eye, H57.89 - Other specif ied disorders of eye and adnexa, I10 - Essential (primary) hypertension, M81.0 - Age-related 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 fracture, Z01.818 - Encounter for other preprocedural examination
== END 2024-06-15 09:28 | disposition home or self-care (01) ==
LOC: HO.HMCC 09:13
PROVIDERS: PCP Internal Medicine; Visit Provider Internal Medicine
DX: Z01.818 Encounter for other preprocedural examination (principal); H17.9 Unspecified corneal scar and opacity; H57.11 Ocular pain, right eye; H57.89 Other specified disorders of eye and adnexa; E78.9 Disorder of lipoprotein metabolism, unspecified; I10 Essential (primary) hypertension; M81.0 Age-related 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 fracture; E55.9 Vitamin D deficiency, unspecified

== ENCOUNTER → 2024-06-15 09:12 | Outpatient (BNVA) | payer OTHER, SELFPAY | PROVIDERS: PCP Internal Medicine; Visit Provider Internal Medicine | DX: Z01.818 Encounter for other preprocedural examination (principal); H17.9 Unspecified corneal scar and opacity; H57.11 Ocular pain, right eye; H57.89 Other specified disorders of eye and adnexa; E78.9 Disorder of lipoprotein metabolism, unspecified; I10 Essential (primary) hypertension; M81.0 Age-related 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 fracture; E55.9 Vitamin D deficiency, unspecified | CPT/HCPCS: 96127; 99212 ==

== ENCOUNTER 2024-12-28 14:48 | Outpatient (AMB) | payer OTHER, SELFPAY ==
--- OUTSIDE RECORDS SUMMARY | 2024-12-28 14:51 | XMS_ITS | Clinical Summary ---
Author Organization [facility], Address [address] [place] [address] [place] [address] Phone Care Team Providers Care Aviation Consultant Name Role Phone Abigail Ledesma MD Primary Care Provider [phone] Medications meclizine (ANTIVERT) 25 MG tablet 02/08/2021 Active [facility] Purelax 17 GM/SCOOP powder USE DIRECTED EVERY DAY 01/24/2021 Active simvastatin (ZOCOR) 20 MG tablet Take 20 mg by mouth 1 (one) time each day 12/25/2020 Active hydroCHLOROthia zide 25 MG tablet Take 25 mg by mouth 1 (one) time each day Active Active Problems Problem Noted Date Diagnosed Date Hypertension 04/01/2021 Single acquired kidney cyst 04/01/2021 Social History Tobacco Use Types Packs/Day Years Used Date Smoking Tobacco: Never Smokeless Tobacco: Never Alcohol Use Standard Drinks/Week Comments Never 0 (1 standard drink = 0.6 oz pur e alcohol) Comments Unknown Sex and Gender Information Value Date Recorded Sex Assigned at Not on file Legal Sex Female 3:32 PM EDT Gender Identity Not on file Sexual Orientation Not on file Last Filed Vital Signs Vital Sign Reading Time Taken Comments Blood Pressure 140/86 04/02/2021 9:06 AM EDT Pulse - - Temperature - - Respiratory Rate - - Oxygen Saturation - - Inhaled Oxygen Concentration - - Weight - - Height - - Body Mass Index - - Plan of Treatment Health Maintenance Due Date Last Done Comments Pneumococcal Vaccine: 50+ Ye ars (1 of - PCV) 1986 Influenza Vaccine (Season Ended) 2025 Hepatitis B Vaccine Aged Out No longe r eligible based on patient's age to complete this topic Insurance [address] [place] [address] [facility] [place] [id number] Care Teams Aviation Consultant Relationship Specialty Start Date End Date Abigail Ledesma MD [facility] [place] [address] PCP - General Internal Medicine 02/08/21
[2024-12-28 14:54] VITALS: BP 120/80; PULSE 88; O2SAT 97; BMI 27.6
--- NOTE | 2024-12-28 14:54 | A.OFFPC_ITS ---
Vital Signs 12/28/24 14:54 Height 5 ft Weight 141 lb 2 oz BMI 27.6 BP 120/80 Blood Pressure Location Lt brachial Position Sitting Pulse 88 Pulse Source Pulse Oximeter Pulse Oximetry (%) 97 Oxygen Delivery Method Room Air Intake Visit Reasons: med review Crime Lab Analyst Required: No Allergies No Known Allergies Allergy (Verified 12/28/24 14:55) Medication List - Last Reconciled 12/28/24 by Abigail Ledesma MD brimonidine-timolol 0.2-0.5 % drps ophthalmic (eye) cholecalciferol (vitamin D3) 50 mcg PO DAILY 90 days hydrochlorothiazide 25 mg PO DAILY meclizine 25 mg PO DAILY PRN 30 days polyethylene glycol 3350 (Purelax) one cap full in glass of water PO daily PRN; prednisolone acetate 1% drps ophthalmic (eye) simvastatin 20 mg PO DAILY 90 days Tobacco use date assessed: 12/28/24 Fall risk assessment: No Falls in past year Last assessed Fall Risk: 12/28/24 Dental Screening Dental Screen Date: 12/28/24 Did you have a dental visit in the last 12 months?: Yes Did you have a dental problem in the last 6 months where you did not have access to dental care?: No Was dental information given to patient?: Patient has dentist HPI med review HPI Details History - The patient is an 89-year-old female p resenting with ongoing dizziness and headaches. - right eye complications, recently had over flap surgery on the eye, resulting in the alleviation of previous eye pain; - Headaches described as being constant and located on right one side of the head. Patient says that ophthalmology told her that this is normal. - Dizziness is noted, and the patient re ports a need to use a cane for stability. The dizziness is described as particularly bothersome and has caused concern about balance. - Hypertension under current management currently taking hydrochlorothiazide I am changing it to atenolol 25 mg hoping that her headache will respond - Hyperlipidemia is managed with simvast atin, which the patient remains on; the importance of consistent usage is reinforced to maintain cholesterol levels. - Reports ongoing use of meclizine for d izziness, with a recent increase in dosage to twice a day. - Constipation addressed with MiraLAX c onfirms usage and finds supplied generic versions suffice. Patient is to return in 2 weeks for nursing visit for blood pressure monitoring. Problem List - status post flap surgery - Essential Hypertension - Chronic Headache right-sided - Dizziness - Hyperlipidemia - Constipation Patient Instructions - Discontinue hydrochlorothiazide and st art taking atenolol as advised. - Continue taking simvastatin as prescri bed to maintain cholesterol levels. - Use meclizine at a dose of 25 mg, twic e daily as discussed. - Continue using MiraLAX for constipatio n as needed. - Maintain or obtain vitamin D supplemen ts to ensure sufficient levels. - Use a cane for support to help prevent falls due to dizziness. - Attend blood pressure check with nurse in a couple of weeks. - Get lab work completed by end of the d ay if time permits. . Review of Systems - General: No fever no chills - Ear nose throat: No sore throat no hearing difficulty no ear pain - Cardiovascular: No syncope, no chest pain, no palpitations - Gastrointestinal: No nausea vomiting or diarrhea - Endocrine: No polyuria polydipsia no heat intolerance - Genitourinary: No dysuria , no blood in urine Physical Exam General: No acute distress HEENT: No acute findings, patient reports no more eye pain after surgery right- sided, she is blind right eye Neck: Supple Respiratory system: Able to talk in full sentences, no audible wheeze, lungs are clear Cardiovascular: S1-S2 regular in rate and rhythm Gastrointestinal: No pain Extremities: No new findings, no swelling of the ankles 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 Social History Housing: Apartment Alcohol intake: never Patient Tobacco Use Status: Never used Tobacco e-Cigarette/Vaping Use: Never Used service: No Current occupational status: retired Cognitive needs: No Hearing needs: No Vision needs: No Questionnaire PHQ-9 Over the last 2 weeks, how often have you been bothered by any of the following problems? 1. Little interest or pleasure in doing things: not at all 2. Feeling down, depressed, or hopeless: not at all 3. Trouble falling or staying asleep, or sleeping too much: not at all 4. Feeling tired or having little energy: not at all 5. Poor appetite or overeating: not at all 6. Feeling bad about yourself - or that you are a failure or have let yourself or your family down: not at all 7. Trouble concentrating on things, such as reading the newspaper or watching television: not at all 8. Moving or speaking so slowly that other people could have noticed. Or the opposite - being so fidgety or restless that you have been moving around a lot more than usual: not at all 9. Thoughts that you would be better off or of hurting yourself in some way: not at all Total score: 0 Depression Screening Interpretation: Negative Depression Screening Done: Yes 51288 - PHQ-9 Billing: Yes Source: Developed by Drs. Dipak Dumont, Denisha Gomez, Aaron Kemp and colleagues, with an educational juan from [employer]. Thrive Questionnaire Date Thrive assessed: 12/28/24 I am a: Patient What is your living situation today?: I have a steady place to live Within the past 12 months, did the food you bought not last and you didn't have the money to get more?: Never true Within the past 12 months, did you worry whether your food would run out before you got money to buy more?: Never true Do you have trouble paying for medicines?: No Do you have trouble getting transportation to medical appointments?: No Do you have trouble paying your heating and electricity bill?: No Do you have trouble taking care of your child, family member or friend?: No Do you have trouble with day-to-day activities such as bathing, preparing meals, shopping, managing finances, etc.?: No Are you currently unemployed and looking for a job?: No Are you interested in more education?: No Please select the resources that you would like help with: None Currently or been in a relationship where the following occur: No concerns reported THRIVE Score: 0 AUDIT C Alcohol Use Questionnaire (AUDIT-C) 1. How often do you have a drink containing alcohol?: Never 3. How often do you have six or more drinks on one occasion?: Never Total Score: 0 Score Reviewed/Action Taken: Yes JONATHON-7 AMB Questionnaire JONATHON-7 Date JONATHON - 7 assessed: 12/28/24 Feeling nervous, anxious, or on edge: 0 = Not at all Not being able to stop or control worryin = Not at all Worrying too much about different things: 0 = Not at all Trouble relaxin = Not at all Being so restless that it is hard to sit still: 0 = Not at all Becoming easily annoyed or irritable: 0 = Not at all Feeling afraid as if something awful might happen: 0 = Not at all Total JONATHON-7 score (0-4 normal; 5-9 mild; 10-14 moderate; 15-21 severe): 0 Source: Developed by Drs. Dipak Dumont, Denisha Gomez, Aaron Kemp and colleagues, with an educational juan from [employer]. JONATHON-7 Assessment Billing JONATHON-7 Assessment Tool: JONATHON-7 Assessment 71306 Physical exam (Primary Care) Vital Signs: Last Vital Signs Pulse 88 12/28/24 14:54 BP 120/80 12/28/24 14:54 Pulse Ox 97 12/28/24 14:54 Oxygen Delivery Method Room Air 12/28/24 14:54 BMI result Body Mass Index 27.6 Tobacco/Smoking Status: Tobacco use Status Tobacco use date assessed 12/28/24 12/28/24 15:00 Patient Tobacco Use Status Never used Tobacco 12/28/24 15:00 e-Cigarette/Vaping Use Never Used 12/28/24 15:00 PHQ-9: PHQ-9 Score PHQ-9: Total score 0 12/28/24 15:20 Depression Screening Interpretation: Negative Thrive Assessment: Date of Thrive Assessment Date Thrive assessed 12/28/24 12/28/24 15:00 Currently or been in a relationship where the following occur: No concerns reported Coding Level of Care Code Est Pt Level 4 (94926) Complex EM visit Add On G2211 Diagnoses Headache, 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 Hypertension, essential I10 Lipid disorder E78.9 Vitamin D deficiency E55.9 Vertigo R42 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 Osteoporosis type: age-related Presence of current pathological fracture: without current pathological fracture Additional Codes JONATHON-7 Assessment Billing - JONATHON-7 Assessment Tool: JONATHON-7 Assessment 10657 ([id number]) PHQ-9 - 03513 - PHQ-9 Billing: Yes ([id number]) Assessment & Plan Assessment & Plan (1) Headache, hemicrania continua: Code(s): 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 - Hemicrania continua Category: Medical (2) Hypertension, essential: Code(s): I10 - Essential (primary) hypertension Category: Medical (3) Lipid disorder: Code(s): E78.9 - Disorder of lipoprotein metabolism, unspecified Category: Medical (4) Vitamin D deficiency: Code(s): E55.9 - Vitamin D deficiency, unspecified Category: Medical (5) Vertigo: Code(s): R42 - Dizziness and giddiness Category: Medical (6) Constipation by delayed colonic transit: Code(s): K59.01 - Slow transit constipation Category: Medical (7) Osteoporosis: Code(s): M81.0 - Age-related 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 - right eye complications, recently had over flap surgery on the eye, resulting in the alleviation of previous eye pain; - Headaches described as being constant and located on right one side of the head. Patient says that ophthalmology told her that this is normal. - Dizziness is noted, and the patient reports a need to use a cane for stabi lity. The dizziness is described as particularly bothersome and has caused concern about balance. - Hypertension under current management currently taking hydrochlorothiazide I am changing it to atenolol 25 mg hoping that her headache will respond - Hyperlipidemia is managed with simvastatin, which the patient remains on; the importance of consistent usage is reinforced to maintain cholesterol levels. - Reports ongoing use of meclizine for dizziness, with a recent increase in dosage to twice a day. - Constipation addressed with MiraLAX, confirms usage and finds supplied generic versions suffice. Patient is to return in 2 weeks for nursing visit for blood pressure monitoring. Problem List - status post flap surgery - Essential Hypertension - Chronic Headache right-sided - Dizziness - Hyperlipidemia - Constipation Patient Instructions - Discontinue hydrochlorothiazide and start taking atenolol as advised. - Continue taking simvastatin as prescribed to maintain cholesterol levels. - Use meclizine at a dose of 25 mg, twice daily as discussed. - Continue using MiraLAX for constipation as needed. - Maintain or obtain vitamin D supplements to ensure sufficient levels. - Use a cane for support to help prevent falls due to dizziness. - Attend blood pressure check with nurse in a couple of weeks. - Get lab work completed by end of the day if time permits. . Orders: Orders Comprehensive Met. 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 fracture, R42 - Dizziness and giddiness LDL Cholesterol Direct Today E55.9 - Vitamin D deficiency, unspecified, E78.9 - Disorder of lipoprotein metabolism, unspecified, I10 - Essential (primary) hype rtension, K59.01 - Slow transit constipation, M81.0 - Age-related 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 fracture, R42 - Dizziness and giddiness TSH reflex Free T4 Today E55.9 - Vitamin D deficiency, unspecified, E78.9 - Disorder of lipoprotein metabolism, unspecified, I10 - Essential (primary) hypertension, K59.01 - Slow transit constipation, M81.0 - Age-related oste oporosis without current pathological fracture, R42 - Dizziness and giddiness Complete Blood Count Auto Diff Today E55.9 - Vitamin D deficiency, unspecified, E78.9 - Disorder of lipoprotein metabolism, unspecified, I10 - Essential (primary) hypertension, K59.01 - Slow transit constipation, M81.0 - Age-related 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 fracture, R42 - Dizziness and giddiness Vitamin D 25-OH (D2 and D3) Today E55.9 - Vitamin D deficiency, unspecified, E78.9 - Disorder of lipoprotein metabolism, unspecified, I10 - Essential (pr imary) hypertension, K59.01 - Slow transit constipation, M81.0 - Age-related 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 fracture, R42 - Dizziness and giddiness Vitamin B12 Today E55.9 - Vitamin D deficiency, unspecified, E78.9 - Disorder of lipoprotein metabolism, unspecified, I10 - Essential (primary) hypertension, K59.01 - Slow transit constipation, M81.0 - Age-related 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 fracture, R42 - Dizziness and giddiness Medications: New atenolol 25 mg PO DAILY 90 tabs 0RF Changed From meclizine 25 mg PO DAILY 30 days PRN 30 tabs 3RF dizziness To meclizine 25 mg PO BID PRN 180 tabs 0RF dizziness 90 days Refilled polyethylene glycol 3350 (Purelax) one cap full in glass of water PO daily PRN; 510 grams 1RF constipation simvastatin 20 mg PO DAILY 90 tabs 0RF 90 days cholecalciferol (vitamin D3) 50 mcg PO DAILY 90 caps 3RF 90 days E55.9 - Vitamin D deficiency, unspecified
== END 2024-12-28 16:18 | disposition home or self-care (01) ==
LOC: HO.HMCC 14:49
PROVIDERS: PCP Internal Medicine; Visit Provider Internal Medicine
DX: G44.51 Hemicrania continua (principal); I10 Essential (primary) hypertension; E78.9 Disorder of lipoprotein metabolism, unspecified; E55.9 Vitamin D deficiency, unspecified; R42 Dizziness and giddiness; K59.01 Slow transit constipation; M81.0 Age-related 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 fracture

== ENCOUNTER 2024-12-28 14:48 | Outpatient (REF) | payer OTHER, SELFPAY ==
--- OUTSIDE RECORDS SUMMARY | 2024-12-28 15:20 | XMS_ITS | Clinical Summary ---
Author Organization [facility], Address [address] [place] [address] [place] [address] Phone Care Team Providers Care Quiller Machine Fixer Name Role Phone Abigail Ledesma MD Primary Care Provider [phone] Medications meclizine (ANTIVERT) 25 MG tablet 02/08/2021 [...] age to complete this topic Insurance [address] [place] [address] [facility] [place] [id number] Care Teams Quiller Machine Fixer Relationship Specialty Start Date End Date Abigail Ledesma MD [facility] [place] [address] PCP - General Internal Medicine 02/08/21
[2024-12-28 16:15] LABS: MANUAL DIFF FLAG NO
[2024-12-28 16:20] LABS: Basophils Percent Auto 0.4 % (0-2); Eosinophils Absolute Auto 0.1 X10*3/uL (0.0-0.4); Eosinophils Percent Auto 1.1 % (0-4); Hemoglobin 14.3 g/dl (12.0-16.0); Imm Gran Abs Auto 0.03 X10*3/uL (0.00-0.03); Imm Gran Pct Auto 0.4 % (0.0-0.4); Lymphocytes Absolute Auto 3.5 X10*3/uL (1.2-4.9); Lymphocytes Percent Auto 41.5 % (20-40); Mean Corpuscular HGB Conc 30.4 g/dl (31.0-35.0); Mean Corpuscular Hemoglobin 25.4 pg (27.0-33.0); Mean Corpuscular Volume 83.6 fL (80.0-98.0); Monocytes Absolute Auto 0.6 X10*3/uL (0.1-1.2); Monocytes Percent Auto 7.1 % (2-11); Neutrophils Absolute Auto 4.2 x10*3/uL (2.0-8.3); Neutrophils Percent Auto 49.5 % (45-73); Platelet Count 269 X10*3/uL (160-400); Red Blood Count 5.62 X10*6/uL (4.20-5.50); Red Cell Distribution Width 14.6 % (11.0-16.0); White Blood Count 8.5 X10*3/uL (4.8-10.8)
[2024-12-28 17:19] LABS: Vitamin B12 627 pg/mL (200-900)
[2024-12-28 17:51] LABS: Alanine Aminotransferase 13 U/L (0-31); Albumin Level 4.4 g/dL (3.5-5.0); Anion Gap 16 (12-20); Aspartate Amino Transferase 22 U/L (5-31); Bilirubin Total 0.5 mg/dL (0.0-1.0); Blood Urea Nitrogen 23 mg/dL (9-16); Carbon Dioxide 28 mmol/L (22-29); Chloride 103 mmol/L (96-108); Estimated Glomerular Filt Rate > 60; Glucose Random 97 mg/dL (60-115); Potassium 3.1 mmol/L (3.3-5.1); Sodium 144 mmol/L (135-145); Total Protein 7.8 g/dL (6.5-8.0)
[2024-12-28 17:57] LABS: Alkaline Phosphatase 65 U/L (39-117)
[2024-12-28 18:08] LABS: TSH reflex Free T4 1.09 uIU/mL (0.32-4.0)
[2024-12-29 06:18] LABS: LDL Cholesterol Direct 106 mg/dL (<100)
[2025-01-02 11:33] LABS: Vitamin D 25-OH, D2 <4 ng/mL; Vitamin D 25-OH, D3 43 ng/mL; Vitamin D 25-OH, Total 43 ng/mL (30-100)
== END 2024-12-28 14:49 | disposition home or self-care (01) ==
LOC: HO.HMGCLDS 14:48
PROVIDERS: PCP Internal Medicine; Visit Provider Internal Medicine
DX: G44.51 Hemicrania continua (principal); I10 Essential (primary) hypertension; E78.9 Disorder of lipoprotein metabolism, unspecified; E55.9 Vitamin D deficiency, unspecified; R42 Dizziness and giddiness; K59.01 Slow transit constipation; M81.0 Age-related 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 fracture
CPT/HCPCS: 36415; 80053; 82306; 82607; 83721; 84443; 85025; 96127; 99212

== ENCOUNTER 2025-06-07 14:23 | Outpatient (AMB) | payer OTHER, SELFPAY ==
[2025-06-07 14:33] VITALS: BP 120/78; PULSE 74; O2SAT 97; BMI 27.9
--- NOTE | 2025-06-07 14:33 | A.OFFPC_ITS ---
Vital Signs 06/07/25 14:33 Height 5 ft Weight 143 lb BMI 27.9 BP 120/78 Blood Pressure Location Lt brachial Position Sitting Pulse 74 Pulse Source Pulse Oximeter Pulse Oximetry (%) 97 Intake Visit Reasons: Annual pe Allergies No Known Allergies Allergy (Verified 06/07/25 14:34) Medication List - Last Reconciled 06/07/25 by Abigail Ledesma MD atenolol 25 mg PO DAILY brimonidine-timolol 0.2-0.5 % drps ophthalmic (eye) cholecalciferol (vitamin D3) 50 mcg PO DAILY 90 days meclizine 25 mg PO BID PRN 90 days polyethylene glycol 3350 (Gavilax) 17 grams PO DAILY PRN prednisolone acetate 1% drps ophthalmic (eye) simvastatin 20 mg PO DAILY 90 days Tobacco use date assessed: 12/28/24 Fall risk assessment: No Falls in past year Last assessed Fall Risk: 06/07/25 Dental Screening Dental Screen Date: 12/28/24 HPI Annual pe HPI Details History of Present Illness The patient is an 89-year-old female presenting for a physical exam appointment with focus on chronic conditions. Essential Hypertension: - Hypertension well-controlled. - Current management includes atenolol Hyperlipidemia: - Managed with simvastatin 20 mg. - due for labs Chronic Vertigo: - Being managed with meclizine. - Patient reports issues with balance an d severe vertigo, impacting mobility. Due to blindness in right eye - No recent falls, patient was instructe d to start utilizing cane Glaucoma: - Results in vision impairment in one ey e. Right - Recent eye issues with possible laser procedure discussed by her centrifugal casting machine operator. - Anxiety regarding procedures and poten tial blindness noted. Medical History: - Hypertension - Hyperlipidemia - Chronic Vertigo - Constipation - Glaucoma - blind right eye Social History: - Lives with family - Expresses anxiety about health issues - Reports issues with balance Health Maintenance - Mammogram last conducted in 2020 patie nt stopped after that - No colonoscopy per patient's report do not want any - Refused flu vaccination or any other v accine due to past adverse reaction - Received COVID-19 vaccination Patient Instructions - Continue using a cane for balance supp ort. - Perform regular breast examinations an d report any changes. - Schedule follow-up appointment in six months. - Complete blood work as ordered. - Continue with prescribed medications a nd supplements. - Monitor symptoms and report any signif icant changes, especially dizziness or headaches. Follow-up six-month physical exam 1 year Review of Systems - General: No fever no chills - Neurological: No headaches no dizzin ess - Ear nose throat: No sore throat no hearing difficulty no ear pain - Cardiovascular: No syncope, no chest pain, no palpitations - Gastrointestinal: No nausea vomiting or diarrhea - Endocrine: No polyuria polydipsia no heat intolerance - Genitourinary: No dysuria - Skin: No new complaints Physical Exam General: Cooperative, healthy appearing, comfortable, no acute distress Orientation: Patient oriented x3 Limitations: Risk for fall due to dizziness and blindness in right eye Head: Normal to inspection Ears: Within normal limit visually Nose: Normal external nose present Face and sinus: Normal facial exam Eyes: Appearance abnormal, patient reports terrible vision, blind right eye and left eye with crusting around eyelashes Neck: Normal visual inspection and supple Respiratory: Normal respiratory effort and able to speak in complete sentences. Clear to auscultation, no stridor Cardiovascular: S1 and S2 RRR, blood pressure 120/78 Breast exam benign no lumps GI: Normal to inspection. Soft to palpation and nontender Skin: Turgor normal, no acute findings Neuro: Patient oriented x3, motor intact, balance not tested due to patient feeling dizzy Extremities: Normal to inspection, age-appropriate full range of motion . [facility] Surgical History No pertinent past surgical history Family History Father Cancer Mother No problems noted. Social History Housing: Apartment Alcohol intake: never Patient Tobacco Use Status: Never used Tobacco e-Cigarette/Vaping Use: Never Used service: No Current occupational status: retired Cognitive needs: No Hearing needs: No Vision needs: No Questionnaire PHQ-9 Over the last 2 weeks, how often have you been bothered by any of the following problems? 1. Little interest or pleasure in doing things: not at all 2. Feeling down, depressed, or hopeless: not at all 3. Trouble falling or staying asleep, or sleeping too much: not at all 4. Feeling tired or having little energy: not at all 5. Poor appetite or overeating: not at all 6. Feeling bad about yourself - or that you are a failure or have let yourself or your family down: not at all 7. Trouble concentrating on things, such as reading the newspaper or watching television: not at all 8. Moving or speaking so slowly that other people could have noticed. Or the opposite - being so fidgety or restless that you have been moving around a lot more than usual: not at all 9. Thoughts that you would be better off or of hurting yourself in some way: not at all Total score: 0 Depression Screening Interpretation: Negative Depression Screening Done: Yes 36675 - PHQ-9 Billing: Yes Source: Developed by Drs. Dipak Dumont, Denisha Gomez, Aaron Kemp and colleagues, with an educational juan from [employer]. Thrive Questionnaire Date Thrive assessed: 12/28/24 I am a: Patient What is your living situation today?: I have a steady place to live Within the past 12 months, did the food you bought not last and you didn't have the money to get more?: Never true Within the past 12 months, did you worry whether your food would run out before you got money to buy more?: Never true Do you have trouble paying for medicines?: No Do you have trouble getting transportation to medical appointments?: No Do you have trouble paying your heating and electricity bill?: Yes Do you have trouble taking care of your child, family member or friend?: No Do you have trouble with day-to-day activities such as bathing, preparing meals, shopping, managing finances, etc.?: No Are you currently unemployed and looking for a job?: No Are you interested in more education?: No Please select the resources that you would like help with: None Currently or been in a relationship where the following occur: I choose not to answer THRIVE Score: 1 AUDIT C Alcohol Use Questionnaire (AUDIT-C) 1. How often do you have a drink containing alcohol?: Never 3. How often do you have six or more drinks on one occasion?: Never Total Score: 0 Score Reviewed/Action Taken: Yes JONATHON-7 AMB Questionnaire JONATHON-7 Date JONATHON - 7 assessed: 06/07/25 Feeling nervous, anxious, or on edge: 0 = Not at all Not being able to stop or control worryin = Not at all Worrying too much about different things: 0 = Not at all Trouble relaxin = Not at all Being so restless that it is hard to sit still: 0 = Not at all Becoming easily annoyed or irritable: 0 = Not at all Feeling afraid as if something awful might happen: 0 = Not at all Total JONATHON-7 score (0-4 normal; 5-9 mild; 10-14 moderate; 15-21 severe): 0 Source: Developed by Drs. Dipak Dumont, Denisha Gomez, Aaron Kemp and colleagues, with an educational juan from [employer]. JONATHON-7 Assessment Billing JONATHON-7 Assessment Tool: JONATHON-7 Assessment 06185 Physical exam (Primary Care) Vital Signs: Last Vital Signs Pulse 74 06/07/25 14:33 BP 120/78 06/07/25 14:33 Pulse Ox 97 06/07/25 14:33 BMI result Body Mass Index 27.9 Tobacco/Smoking Status: Tobacco use Status Tobacco use date assessed 12/28/24 06/07/25 14:35 Patient Tobacco Use Status Never used Tobacco 06/07/25 14:35 e-Cigarette/Vaping Use Never Used 06/07/25 14:35 PHQ-9: PHQ-9 Score PHQ-9: Total score 0 06/07/25 14:35 Depression Screening Interpretation: Negative Thrive Assessment: Date of Thrive Assessment Date Thrive assessed 12/28/24 06/07/25 14:35 Currently or been in a relationship where the following occur: I choose not to answer Coding Level of Care Code Est Pt Level 4 (72397) Est Pt Prev Care >65y(79344) Diagnoses Encounter for general adult medical examination with abnormal findings Z00.01 Hypertension, essential I10 Lipid disorder E78.9 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 Osteoporosis type: age-related Presence of current pathological fracture: without current pathological fracture Vertigo R42 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 H54.40 Left eye visual impairment category: left - normal vision Glaucoma of left eye, unspecified glaucoma type H40.9 Glaucoma type: unspecified Laterality: left Constipation by delayed colonic transit K59.01 Risk for falls Z91.81 Anxiety about health F41.8 Additional Codes JONATHON-7 Assessment Billing - JONATHON-7 Assessment Tool: JONATHON-7 Assessment 79979 ([id number]) PHQ-9 - 94807 - PHQ-9 Billing: Yes ([id number]) Assessment & Plan Assessment & Plan (1) Encounter for general adult medical examination with abnormal findings: Code(s): Z00.01 - Encounter for general adult medical examination with abnormal findings Category: Medical (2) Hypertension, essential: Code(s): I10 - Essential (primary) hypertension Category: Medical (3) Lipid disorder: Code(s): E78.9 - Disorder of lipoprotein metabolism, unspecified Category: Medical (4) Osteoporosis: Code(s): M81.0 - Age-related 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 fracture Category: Medical Qualifiers: Osteoporosis type: age-related Presence of current pathological fracture: without current pathological fracture Qualified Code(s): M81.0 - Age- related 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 fracture (5) Vertigo: Code(s): R42 - Dizziness and giddiness Category: Medical (6) Blind right eye: Code(s): H54.40 - Blindness, one eye, unspecified eye Category: Medical Qualifiers: Left eye visual impairment category: left - normal vision Qualified Code(s): H54.40 - Blindness, one eye, unspecified eye (7) Glaucoma: Code(s): H40.9 - Unspecified glaucoma Category: Medical Qualifiers: Glaucoma type: unspecified Laterality: left Qualified Code(s): H40.9 - Unspecified glaucoma (8) Constipation by delayed colonic transit: Code(s): K59.01 - Slow transit constipation Category: Medical (9) Risk for falls: Code(s): Z91.81 - History of falling Category: Medical (10) Anxiety about health: Code(s): F41.8 - Other specified anxiety disorders Category: Medical Plan Essential Hypertension: - Hypertension well-controlled. - Current management includes atenolol Hyperlipidemia: - Managed with simvastatin 20 mg. - due for labs Chronic Vertigo: - Being managed with meclizine. - Patient reports issues with balance and severe vertigo, impacting mobility. Due to blindness in right eye - No recent falls, patient was instructed to start utilizing cane Glaucoma: - Results in vision impairment in one eye. Right - Recent eye issues with possible laser procedure discussed by her centrifugal casting machine operator. - Anxiety regarding procedures and potential blindness noted. Medical History: - Hypertension - Hyperlipidemia - Chronic Vertigo - Constipation - Glaucoma - blind right eye Social History: - Lives with family - Expresses anxiety about health issues - Reports issues with balance Health Maintenance - Mammogram last conducted in 2020 patient stopped after that - No colonoscopy per patient's report do not want any - Refused flu vaccination or any other vaccine due to past adverse reaction - Received COVID-19 vaccination Patient Instructions - Continue using a cane for balance support. - Perform regular breast examinations and report any changes. - Schedule follow-up appointment in six months. - Complete blood work as ordered. - Continue with prescribed medications and supplements. - Monitor symptoms and report any significant changes, especially dizziness or headaches. Follow-up six-month physical exam 1 year Orders: Orders LDL Cholesterol Direct Today E78.9 - Disorder of lipoprotein metabolism, unspecified, H54.40 - Blindness, one eye, unspecified eye, I10 - Essential (primary) hypertension, M81.0 - Age-related 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 fracture, R42 - Dizziness and giddiness, Z00.01 - Encounter for general adult medical examination with abnormal findings Complete Blood Count Auto Diff Today E78.9 - Disorder of lipoprotein metabolism, unspecified, H54.40 - Blindness, one eye, unspecified eye, I10 - Essential (primary) hypertension, M81.0 - Age-related 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 fracture, R42 - Dizziness and giddiness, Z00.01 - Encounter for general adult medical examination with abnormal findings Comprehensive Met. 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
== END 2025-06-07 15:01 | disposition home or self-care (01) ==
LOC: HO.HMCC 14:24
PROVIDERS: PCP Internal Medicine; Visit Provider Internal Medicine
DX: Z00.01 Encounter for general adult medical examination with abnormal findings (principal); I10 Essential (primary) hypertension; E78.9 Disorder of lipoprotein metabolism, unspecified; M81.0 Age-related 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 fracture; R42 Dizziness and giddiness; H54.41 Blindness, right eye, normal vision left eye; H40.9 Unspecified glaucoma; K59.01 Slow transit constipation; Z91.81 History of falling; F41.8 Other specified anxiety disorders

== ENCOUNTER 2025-06-07 14:23 | Outpatient (REF) | payer OTHER, SELFPAY ==
[2025-06-07 16:04] LABS: MANUAL DIFF FLAG NO
[2025-06-07 16:19] LABS: Hematocrit 46.1 % (37.0-47.0); Hemoglobin 13.8 g/dl (12.0-16.0); Imm Gran Abs Auto 0.02 X10*3/uL (0.00-0.03); Imm Gran Pct Auto 0.2 % (0.0-0.4); Lymphocytes Absolute Auto 3.2 X10*3/uL (1.2-4.9); Mean Corpuscular HGB Conc 29.9 g/dl (31.0-35.0); Mean Corpuscular Hemoglobin 25.4 pg (27.0-33.0); Mean Corpuscular Volume 84.9 fL (80.0-98.0); NRBC Abs Auto 0.000 X10*3/uL (0.0-0.012); NRBC Pct Auto 0.0 /100WBC (0.0-0.2); Platelet Count 248 X10*3/uL (160-400); Red Blood Count 5.43 X10*6/uL (4.20-5.50); White Blood Count 8.0 X10*3/uL (4.8-10.8)
[2025-06-07 16:34] LABS: Alanine Aminotransferase 12 U/L (0-31); Albumin Level 4.4 g/dL (3.5-5.0); Alkaline Phosphatase 68 U/L (39-117); Anion Gap 8 (12-20); Aspartate Amino Transferase 21 U/L (5-31); Blood Urea Nitrogen 22 mg/dL (9-16); Calcium 9.7 mg/dL (8.4-10.2); Carbon Dioxide 28 mmol/L (22-29); Chloride 110 mmol/L (96-108); Estimated Glomerular Filt Rate > 60; Potassium 3.9 mmol/L (3.3-5.1); Sodium 142 mmol/L (135-145); Total Protein 7.3 g/dL (6.5-8.0)
== END 2025-06-07 14:24 | disposition home or self-care (01) ==
LOC: HO.HMGCLDS 14:23
PROVIDERS: PCP Internal Medicine; Visit Provider Internal Medicine
DX: Z00.01 Encounter for general adult medical examination with abnormal findings (principal); I10 Essential (primary) hypertension; M81.0 Age-related 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 fracture; E78.9 Disorder of lipoprotein metabolism, unspecified; R42 Dizziness and giddiness; H54.40 Blindness, one eye, unspecified eye; H40.9 Unspecified glaucoma; K59.01 Slow transit constipation; F41.8 Other specified anxiety disorders; Z91.81 History of falling; Z79.899 Other long term (current) drug therapy
CPT/HCPCS: 36415; 80053; 83721; 85025; 96127; 99397